=== PATIENT | female | born 1980 | race Caucasian/White ===

== ENCOUNTER 2018-04-09 14:18 | Emergency (ER) | payer BC ==
[2018-04-09 15:51] VITALS: BP 154/109
--- NOTE | 2018-04-09 17:34 | ED ---
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 Denies recent URI, f/c/n/v/d - History of Current Complaint Chief Complaint: UCEar Time Seen by Provider: 04/09/18 16:57 Hx Obtained From: Patient Onset/Duration: Sudden Onset Severity: Moderate Associated Signs And Symptoms: Positive: Negative Cough: None - Epiglottits Risk Factors Epiglottis Risk Factors: Negative - Allergies/Home Medications Allergies/Adverse Reactions: Allergies Allergy/AdvReac Type Severity Reaction Status Date / Time amoxicillin Allergy Hives Verified 04/09/18 15:52 PMH/Surg Hx/FS Hx/Imm Hx Previously Healthy: Yes Endocrine/Hematology History: Denies: Hx Diabetes Cardiovascular History: Denies: Hx Hypertension, Hx Pacemaker/ICD, Other Cardiovascular Problems/ Disorders Respiratory History: Denies: Hx Asthma, Other Respiratory Problems/Disorders GI History: Denies: Other GI Disorders History: Denies: Hx Renal Disease Musculoskeletal History: Denies: Other Musculoskeletal History Sensory History: Denies: Hx Contacts or Glasses, Hx Hearing Aid Opthamlomology History: Denies: Hx Contacts or Glasses Neurological History: Denies: Other Neuro Impairments/Disorders Psychiatric History: Reports: Hx Anxiety - ON MEDS, Hx Depression - ON MEDS, Hx Panic Disorder - Surgical History Surgery Procedure, Year, and Place: TOOTH IMPLANT Hx Anesthesia Reactions: No Infectious Disease History: No Infectious Disease History: Denies: Traveled Outside the [place] in Last 30 Days - Social History Alcohol Use: Daily Alcohol Amount: 2 PER DAY Substance Use Type: Reports: None Smoking Status (MU): Never Smoked Tobacco Review of Systems Constitutional: Negative Positive: Fever Eyes: Negative Positive: Ear Ache - with mild dizziness Cardiovascular: Negative Respiratory: Negative Gastrointestinal: Negative Genitourinary: Negative Musculoskeletal: Negative Skin: Negative Neurological: Negative Psychological: Normal All Other Systems Reviewed And Are Negative: Yes Physical Exam Vital Signs On Initial Exam: Initial Vitals Temp Pulse Resp BP Pulse Ox 36.4 C 83 16 154/109 100 04/09/18 15:46 04/09/18 15:46 04/09/18 15:46 04/09/18 15:46 04/09/18 15:46 Vital Signs Reviewed: Yes Appearance: Positive: Well-Appearing, No Pain Distress Skin: Positive: Warm Head/Face: Positive: Normal Head/Face Inspection Eyes: Positive: Normal, EOMI, JOAO ENT: Positive: Normal ENT inspection, Nasal congestion, TMs normal, Uvula midline. Negative: Tonsillar swelling, Tonsillar exudate Neck: Positive: Supple Respiratory/Lung Sounds: Positive: Clear to Auscultation Cardiovascular: Positive: Normal, RRR, S1, S2 Abdomen Description: Positive: Nontender Musculoskeletal: Positive: Normal Neurological: Positive: Normal, Alert, Oriented to Person Place, Time, CN Intact II-III Psychiatric: Positive: Normal Diagnostics - Vital Signs Vital Signs Temp Pulse Resp BP Pulse Ox 04/09/18 15:46 36.4 C 83 16 154/109 100 - Laboratory Lab Statement: Any lab studies that have been ordered have been reviewed, and results considered in the medical decision making process. EENT Course/Dx - Course Course Of Treatment: NO recent prodrome to indicate acute labrynthitis or meniere's disease. Declined EKG today but stronglyADVISED FOLLOW UP WITH PCP VALENTIN FOR HTN, BLOODWORK FOR KNOWN ELEVATED BP Assessment/Plan: HTN- elevated BP known by the pt for ONE year and IGNORED. right ear pain and dizziness resolved on its own, pt to follow up with pcp - Diagnoses Provider Diagnoses: HTN (hypertension) with goal to be determined Discharge - Sign-Out/Discharge Documenting (check all that apply): Discharge/Admit/Transfer - Discharge Plan Condition: Stable Disposition: HOME Patient Education Materials: Chronic Hypertension (ED) Referrals: Ben Jaquez MD [Primary Care Provider] - Additional Instructions: ADVISED FOLLOW UP WITH PCP VALENTIN FOR HYPERTENSION, BLOODWORK FOR KNOWN ELEVATED BP, RIGHT EAR PAIN AND DIZZINESS - Billing Disposition and Condition Condition: STABLE Disposition: HOME
== END 2018-04-09 17:41 | disposition home or self-care (01) ==
LOC: UCEAST 14:18
DX: I10 Essential (primary) hypertension (principal); H92.01 Otalgia, right ear; Z88.0 Allergy status to penicillin
CPT/HCPCS: 99211; G0463

== ENCOUNTER 2019-03-31 11:59 | Emergency (ER) | payer BC ==
--- NOTE | 2019-03-31 12:17 | ED ---
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 The CP lasted a few seconds and was rated 3/4 out of 10. She has not had episodes of this pain before. Associated sx: L finger tingling, diaphoresis, dizziness. Denies fever, cough, SOB, abd pain, n/v, urinary sx, LUE pain, calf pain, GOULD. [place] [facility] [place], dx: anxiety. Medications discussed: Cymbalta DR 60mg once a day; Lisinopril 10mg once a day. She sees Dr. Jaquez, PCP. No previous stress test. [facility] was 2 weeks ago which was normal. A0. Pert FHx: father had SC at 42 years old. Non-smoker. Vitals at bedside: Patient evaluated in H4. Allergies discussed. Home Medications Medication Instructions Recorded Confirmed Type DULoxetine CAP* [Cymbalta CAP*] 60 mg PO DAILY 03/24/14 03/30/14 History - History of Current Complaint Chief Complaint: EDChestPainROMI Time Seen by Provider: 03/31/19 12:12 Hx Obtained From: Patient, Family/Optical Effects Line Up Person - parents Hx Last Menstrual Period: 04/02/2018 Onset/Duration: Started Hours Ago, Atraumatic, Resolved Timing: Intermittent, Lasting Seconds Initial Severity: Moderate - 3/4 out of 10 Current Severity: None Pain Intensity: 0 - at bedside Pain Scale Used: 0-10 Numeric Chest Pain Location: Left Anterior Chest Pain Radiates: Yes Chest Pain Radiates To:: Other - L chest lateral Character: Other: - pos: shooting Aggravating Factor(s): Nothing Alleviating Factor(s): Medication Associated Signs and Symptoms: Positive: Tingling - L fingers, Dizziness, Diaphoresis, Other: - neg: urinary sx, LUE pain.. Negative: Headaches, Shortness of Breath, Fever, Nausea, Cough, Abdominal Pain, Calf Pain/Swelling, Vomiting Related History: Obesity - Allergy/Home Medications Allergies/Adverse Reactions: Allergies Allergy/AdvReac Type Severity Reaction Status Date / Time amoxicillin Allergy Hives Verified 04/09/18 15:52 Home Medications: Home Medications DULoxetine DR CAP* [Cymbalta CAP*] 60 mg PO DAILY 03/31/19 [History Confirmed ] Lisinopril TAB* [Prinivil TAB*] 10 mg PO DAILY 03/31/19 [History Confirmed 03/31] PMH/Surg Hx/FS Hx/Imm Hx Previously Healthy: No Endocrine/Hematology History: Denies: Hx Diabetes Cardiovascular History: Reports: Hx Hypertension Denies: Hx Pacemaker/ICD, Other Cardiovascular Problems/Disorders Respiratory History: Denies: Hx Asthma, Other Respiratory Problems/Disorders GI History: Denies: Other GI Disorders History: Denies: Hx Renal Disease Musculoskeletal History: Denies: Other Musculoskeletal History Sensory History: Denies: Hx Contacts or Glasses, Hx Hearing Aid Opthamlomology History: Denies: Hx Contacts or Glasses Neurological History: Denies: Other Neuro Impairments/Disorders Psychiatric History: Reports: Hx Anxiety - ON MEDS, Hx Depression - ON MEDS, Hx Panic Disorder - Surgical History Surgery Procedure, Year, and Place: TOOTH IMPLANT; ACL. Hx Anesthesia Reactions: No - Immunization History Date of Tetanus Vaccine: unk Date of Influenza Vaccine: fall 2017 Infectious Disease History: No Infectious Disease History: Denies: Traveled Outside the [place] in Last 30 Days - Family History Known Family History: Positive: Cardiac Disease - [place] - father at 42 years old Family History: no FHx: DVT. - Social History Occupation: Employed Full-time Lives: With Family Alcohol Use: Daily Alcohol Amount: 6 pack per day Hx Substance Use: No Substance Use Type: Reports: None Hx Tobacco Use: No Smoking Status (MU): Never Smoked Tobacco Review of Systems Positive: Skin Diaphoresis. Negative: Fever Positive: Chest Pain Negative: Shortness Of Breath, Cough Negative: Abdominal Pain, Vomiting, Nausea Negative: dysuria, hematuria Negative: Other - neg: LUE pain, calf pain Neurological: Other - pos: L finger tingling, dizziness Negative: Headache All Other Systems Reviewed And Are Negative: Yes Physical Exam - Summary Physical Exam Summary: Appearance: Well-appearing, moderate pain distress, well-nourished Skin: Warm, color reflects adequate perfusion, dry, flushed face. Head: Normal Head/Face inspection, atraumatic Eyes: Conjunctiva clear ENT: Normal inspection Neck: Supple, no nodes, no JVD Respiratory: Lungs clear, normal breath sounds, no respiratory distress Cardio: RRR, No murmur, pulses normal, brisk capillary refill Abdomen: Soft, nontender Bowel sounds: Present Musculoskeletal: Strength Intact/ROM intact, no calf tenderness, no edema. Psychological: Normal Neuro: Alert, muscle tone normal, no focal deficit Triage Information Reviewed: Yes Vital Signs On Initial Exam: Initial Vitals Temp Pulse Resp BP Pulse Ox 99.5 F 96 14 129/79 98 03/31/19 12:00 03/31/19 12:00 03/31/19 12:00 03/31/19 12:00 03/31/19 12:00 Vital Signs Reviewed: Yes Diagnostics - Vital Signs Vital Signs Temp Pulse Resp BP Pulse Ox 03/31/19 12:00 99.5 F 96 14 129/79 98 - Laboratory Result Diagrams: 03/31/19 12:39 03/31/19 12:39 Lab Statement: Any lab studies that have been ordered have been reviewed, and results considered in the medical decision making process. - Radiology CXR Radiology Interpretation Completed By: Radiologist Summary of Radiographic Findings: IMPRESSION: No active cardiopulmonary disease. ED provider has reviewed this report. - EKG 1230 Cardiac Rate: NL - 87 bpm EKG Rhythm: Sinus Rhythm ST Segment: Non-Specific Ectopy: None EKG Comparison: No Significant Change - from EKG on 02/21/19. Summary of EKG Findings: An EKG at [address], nml QTc, and nml axis. Nml LVH. No acute changes. EKG read and interpreted by ED physician. Re-Evaluation - Re-Evaluation 1 Re-Evaluation Time: 14:28 Change: Improved Comment: Discussing results with patient and plan for discharge. She is pain free and agreeable to discharge. 2 Re-Evaluation Time: 14:38 Change: Unchanged Comment: Letting patient know CXR was ordered. She did take her Lisinopril, but BP remains elevated, will order 1x dose prior to discharge. Vitals: HR: 93 bpm, BP: 152/102, O2 sat: 99%. 3 Re-Evaluation Time: 15:30 Change: Unchanged Comment: Discussing CXR results with patient and plan for discharge. 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 The CP lasted a few seconds, was rated 3/4 out of 10 and radiated to L-lateral chest. Associated sx: L finger tingling, diaphoresis, dizziness. Denies fever, cough, SOB, abd pain, n/v, urinary sx, LUE pain, calf pain, GOULD. Pert FHx: father had SC at 42 years old. Non-smoker. PCP is Dr. Jaquez. Lab work is without significant abnormality. An EKG at 1230 shows NSR at 87 bpm reveals nml [address], nml QTc, and nml axis, nml LVH. No acute changes. Similar to EKG on 02/21/19. CXR shows "No active cardiopulmonary disease.". Patient given baby aspirin in ED. Allergies noted, high blood pressure noted. Pt medications reviewed this visit. Nurses note reviewed. Will discharge home to follow up with Dr. Jaquez, PCP. - Diagnoses Provider Diagnoses: Chest pain, Elevated LFTs Discharge - Sign-Out/Discharge Documenting (check all that apply): Patient Departure - D/C Patient Received Moderate/Deep Sedation with Procedure: No - Discharge Plan Condition: Critical Disposition: HOME Patient Education Materials: Chest Pain (ED) Forms: *Work Release Referrals: Ben Jaquez MD [Primary Care Provider] - Additional Instructions: Your blood test EKG and chest x-ray today did not show any serious cause for your chest pain. Your liver enzymes (AST, aALT) were slightly elevated the AST was 54 1 normal is 39 BAL T was 58 when normal is 52. Your bilirubin and your alkaline phosphatase enzymes were normal. You can work with Dr. Jaquez to do further evaluation of these liver enzyme elevations. You were given aspirin 324 mg orally while you were in the emergency department. Your also given an extra dose of lisinopril 10 mg for blood pressure of 152/102 with a pulse of 97 at the time. Your respirations were unlabored and your oxygen saturations were 99%. Please return to the emergency department if you have any new or worsening symptoms. - Attestation Statements Document Initiated by Scribe: Yes Documenting Scribe: Colten Wilkinson Provider For Whom Scribe is Documenting (Include Credential): Dr. Federica Felipe MD Scribe Attestation: I, Colten Wilkinson, scribed for Dr. Federica Felipe MD on 03/31/19 at 1614.
[2019-03-31] MEDS ORDERED: Aspirin 81 mg CHEW TAB* 81 MG TAB.CHEW PO ONE (12:47)
[2019-03-31 12:58] LABS: ABS Basophils 0.1 10^3/ul (0-0.2); ABS Eosinophils 0.2 10^3/ul (0-0.6); ABS Lymphocytes 1.5 10^3/ul (1.0-4.8); ABS Monocytes 0.5 10^3/ul (0-0.8); ABS Neutrophils 4.8 10^3/ul (1.5-7.7); Eosinophil % 3.1 %; Hematocrit 41 % (35-47); Hemoglobin 13.8 g/dL (12.0-16.0); Mean Corpuscular HGB Conc 34 g/dL (31-36); Mean Corpuscular Hemoglobin 32 pg (27-31); Mean Corpuscular Volume 94 fL (80-97); Mean Platelet Volume 6.3 fL (7.4-10.4); Nucleated Red Blood Cells % 0.1; Platelet Count 432 10^3/uL (150-450); Red Blood Count 4.35 10^6 /uL (3.70-4.87); Red Cell Distribution Width 14 % (10.5-15); White Blood Count 7.1 10^3/uL (3.5-10.8)
[2019-03-31 13:10] LABS: INR 0.95 (0.82-1.09)
[2019-03-31 13:13] LABS: Albumin 4.3 g/dL (3.2-5.2); Albumin/Globulin Ratio 1.3 (1-3); BUN/Creatinine Ratio 18.2 (8-20); Calcium 9.6 mg/dL (8.6-10.3); EGFR Non-African American 82.6 (>60); Globulin 3.2 g/dL (2-4); Potassium 4.2 mmol/L (3.5-5.0); Total Bilirubin 0.4 mg/dL (0.2-1.0); Total Protein 7.5 g/dL (6.4-8.9)
[2019-03-31 13:14] LABS: Troponin I 0.01 ng/mL (<0.04)
[2019-03-31] MEDS ORDERED: Lisinopril TAB* 10 MG PO ONE (14:41)
[2019-03-31 15:34] VITALS: BP 148/97
== END 2019-03-31 15:33 | disposition home or self-care (01) ==
LOC: ED 11:59
DX: R07.9 Chest pain, unspecified (principal); R94.5 Abnormal results of liver function studies; I10 Essential (primary) hypertension; F41.9 Anxiety disorder, unspecified; F32.9 Major depressive disorder, single episode, unspecified
CPT/HCPCS: 36415; 71045; 80053; 84484; 85025; 85610; 93005; 99283; A9270-GY

== ENCOUNTER 2019-05-29 12:11 | Emergency (ER) | payer BC ==
--- NOTE | 2019-05-29 14:00 | ED ---
Lower Extremity - HPI Summary HPI Summary: A 39 y/o female presents to [facility] with a chief complaint of right foot and ankle pain since last night. She says that she [place] when she tripped on her flip-flop that she was wearing. Swelling is also noted. She rates her pain as a 6/10 in severity. The patient has a SHx with Dr. Saavedra and has a Hx of HTN with a FHx of cardiac disease. Per triage note, the patient could not bear weight on her right foot. - History of Current Complaint Chief Complaint: EDExtremityLower Stated Complaint: POSS FRACTURED RIGHT ANKLE PER PATIENT Time Seen by Provider: 05/29/19 13:43 Hx Obtained From: Patient Hx Last Menstrual Period: 04/02/2018 Mechanism Of Injury: Other - tripped over her own flip flop Onset of Pain: Immediate, Post Accident, Prior to Arrival Onset/Duration: Still Present Severity Initially: Moderate Severity Currently: Moderate Pain Intensity: 6 Pain Scale Used: 0-10 Numeric Timing: Constant, Lasting Hours Location: Is Discrete @ - right foot and ankle Associated Signs And Symptoms: Positive: Swelling. Negative: Fever Aggravating Factor(s): Weight Bearing Alleviating Factor(s): Nothing Able to Bear Weight: No - Allergies/Home Medications Allergies/Adverse Reactions: Allergies Allergy/AdvReac Type Severity Reaction Status Date / Time amoxicillin Allergy Hives Verified 05/29/19 12:15 PMH/Surg Hx/FS Hx/Imm Hx Endocrine/Hematology History: Denies: Hx Diabetes Cardiovascular History: Reports: Hx Hypertension Denies: Hx Pacemaker/ICD, Other Cardiovascular Problems/Disorders Respiratory History: Denies: Hx Asthma, Other Respiratory Problems/Disorders GI History: Denies: Other GI Disorders History: Denies: Hx Renal Disease Musculoskeletal History: Denies: Other Musculoskeletal History Sensory History: Denies: Hx Contacts or Glasses, Hx Hearing Aid Opthamlomology History: Denies: Hx Contacts or Glasses Neurological History: Denies: Other Neuro Impairments/Disorders Psychiatric History: Reports: Hx Anxiety - ON MEDS, Hx Depression - ON MEDS, Hx Panic Disorder - Surgical History Surgery Procedure, Year, and Place: TOOTH IMPLANT; ACL. Hx Anesthesia Reactions: No - Immunization History Date of Tetanus Vaccine: unk Date of Influenza Vaccine: fall 2017 Infectious Disease History: No Infectious Disease History: Denies: Traveled Outside the [place] in Last 30 Days - Family History Known Family History: Positive: Cardiac Disease - [place] - father at 42 years old Negative: Hypertension, Diabetes Family History: no FHx: DVT. - Social History Alcohol Use: Daily Alcohol Amount: 6 pack per day Hx Substance Use: No Substance Use Type: Reports: None Hx Tobacco Use: No Smoking Status (MU): Never Smoked Tobacco Review of Systems Negative: Fever Positive: Other - positive: right foot and ankle pain with swelling All Other Systems Reviewed And Are Negative: Yes Physical Exam - Summary Physical Exam Summary: VITAL SIGNS: Reviewed. GENERAL: Patient is a well-developed and nourished FEMALE who is lying comfortable in the stretcher. Patient is not in any acute respiratory distress. HEAD AND FACE: No signs of trauma. No ecchymosis, hematomas or skull depressions. No sinus tenderness. EYES: PERRLA, EOMI x 2, No injected conjunctiva, no nystagmus. EARS: Hearing grossly intact. Ear canals and tympanic membranes are within normal limits. MOUTH: Oropharynx within normal limits. NECK: Supple, trachea is midline, no adenopathy, no JVD, no carotid bruit, no c- spine tenderness, neck with full ROM. CHEST: Symmetric, no tenderness at palpation. LUNGS: Clear to auscultation bilaterally. No wheezing or crackles. CVS: Regular rate and rhythm, S1 and S2 present, no murmurs or gallops appreciated. ABDOMEN: Soft, non-tender. No signs of distention. No rebound, no guarding, and no masses palpated. Bowel sounds are normal. EXTREMITIES: Decreased ROM right ankle, secondary to pain, good pulses and good capillary refill. NEURO: Alert and oriented x 3. No acute neurological deficits. Speech is normal and follows commands. SKIN: Dry and warm. Triage Information Reviewed: Yes Vital Signs On Initial Exam: Initial Vitals Temp Pulse Resp BP Pulse Ox 96.7 F 106 16 144/95 98 05/29/19 12:12 05/29/19 12:12 05/29/19 12:12 05/29/19 12:12 05/29/19 12:12 Vital Signs Reviewed: Yes Diagnostics - Vital Signs Vital Signs Temp Pulse Resp BP Pulse Ox 05/29/19 12:12 96.7 F 106 16 144/95 98 - Laboratory Lab Statement: Any lab studies that have been ordered have been reviewed, and results considered in the medical decision making process. - Radiology ankle x-ray Radiology Interpretation Completed By: Radiologist Summary of Radiographic Findings: NONDISPLACED OBLIQUE FRACTURE OF THE DISTAL FIBULA. ED physician has reviewed this imaging report. foot x-ray Radiology Interpretation Completed By: Radiologist Summary of Radiographic Findings: NONDISPLACED OBLIQUE FRACTURE OF THE DISTAL FIBULA. ED physician has reviewed this imaging report. Lower Extremity Course/Dx - Course Assessment/Plan: A 39 y/o female presents to [facility] with a chief complaint of right foot and ankle pain since last night. She says that she was [place] back to a market when she tripped on her flip-flop that she was wearing. Swelling is also noted. She rates her pain as a 6/10 in severity. The patient has a SHx with Dr. Saavedra and has a Hx of HTN with a FHx of cardiac disease. Per triage note, the patient could not bear weight on her right foot. X ray of right ankle and foot IMPRESSION: NONDISPLACED OBLIQUE FRACTURE OF THE DISTAL FIBULA. In the ED course the patient was given Toradol for the pain. The patient was placed in the posterior splint. The patient will be given crutches and discharged home with follow-up with Dr. Rodriguez who is the orthopedic doctor fire protection specialist. The patient was recommended no weight bearing. Patient is hemodynamically stable. - Diagnoses Provider Diagnoses: Ankle fracture, Fibula fracture Discharge - Sign-Out/Discharge Documenting (check all that apply): Patient Departure - DC Patient Received Moderate/Deep Sedation with Procedure: No - Discharge Plan Condition: Stable Disposition: HOME Patient Education Materials: Ankle Fracture (DC) Referrals: Ben Jaquez MD [Primary Care Provider] - (2-3 days) Moustapha Sanchez MD [Medical Doctor] - Additional Instructions: FOLLOW UP WITH ORTHOPEDICS AND YOUR PRIMARY CARE PROVIDER WITHIN 2-3 DAYS. RETURN TO THE ED FOR ANY WORSENING OR NEW SYMPTOMS. - Billing Disposition and Condition Condition: STABLE Disposition: Home - Attestation Statements Document Initiated by Scribe: Yes Documenting Scribe: David Valerio Provider For Whom Sanjayibe is Documenting (Include Credential): Benigno Singh MD Scribe Attestation: David Pedraza, scribed for Benigno Singh MD on 05/30/19 at 2023. Scribe Documentation Reviewed: Yes Provider Attestation: The documentation as recorded by the scribe, David Valerio accurately reflects the service I personally performed and the decisions made by me, Benigno Singh MD Status of Scribe Document: Viewed
[2019-05-29] MEDS ORDERED: Ketorolac *IM* INJ* 60 MG/2 ML VIAL IM ONE (14:09)
[2019-05-29 14:56] VITALS: BP 135/72
== END 2019-05-29 14:55 | disposition home or self-care (01) ==
LOC: ED 12:11
DX: S82.831A Other fracture of upper and lower end of right fibula, initial encounter for closed fracture (principal); S82.891A Other fracture of right lower leg, initial encounter for closed fracture; M79.671 Pain in right foot; R60.0 Localized edema; Z88.0 Allergy status to penicillin; I10 Essential (primary) hypertension; W01.0XXA Fall on same level from slipping, tripping and stumbling without subsequent striking against object, initial encounter; Y92.9 Unspecified place or not applicable
CPT/HCPCS: 96372; 99282; J1885